=== PATIENT | male | born 1970 | race African-American/Black ===

== ENCOUNTER 2019-12-14 16:40 | Emergency (ER) | payer OTHER ==
[~2019-12-14] VITALS: Ht 190.5 cm; Wt 136.4 kg
[2019-12-14] MEDS ORDERED: DIPH25CA85 PO (16:51)
[2019-12-14] MEDS ORDERED: MethylPREDNISolone SOD SUCC 125 MG/2 ML VIAL IM ONE (18:45)
[2019-12-14] MEDS ORDERED: DiphenhydrAMINE HCL 50 MG/ML VIAL IM ONE (18:45)
[2019-12-14 18:57] VITALS: BP 144/95
== END 2019-12-14 18:58 | disposition home or self-care (01) ==
LOC: EMS 16:40
DX: T63.441A Toxic effect of venom of bees, accidental (unintentional), initial encounter (principal); F17.210 Nicotine dependence, cigarettes, uncomplicated; F12.90 Cannabis use, unspecified, uncomplicated; Y92.89 Other specified places as the place of occurrence of the external cause
CPT/HCPCS: 96372; 99284; J1200; J2930

== ENCOUNTER 2020-03-21 12:12 | Emergency (ER) | payer OTHER ==
[~2020-03-21 12:12] MED LIST: DIPH25CA85 PO
== END 2020-03-21 14:24 | disposition left against medical advice (07) ==
LOC: EMS 12:22
DX: R10.9 Unspecified abdominal pain (principal); Z53.21 Procedure and treatment not carried out due to patient leaving prior to being seen by health care provider